=== PATIENT | male | born 1965 | race Two or more races ===

== ENCOUNTER 2022-02-13 12:40 | Outpatient (CLI) | payer OTHER | END 2022-02-13 12:51 | disposition home or self-care (01) | LOC: RAD 12:40 | PROVIDERS: ATTEND Physical Medicine & Rehabilitation | DX: M54.2 Cervicalgia (principal); M54.6 Pain in thoracic spine; M54.50 Low back pain, unspecified; M72.2 Plantar fascial fibromatosis; M25.561 Pain in right knee; M25.562 Pain in left knee ==